=== PATIENT | male | born 1935 | race Caucasian/White ===

== ENCOUNTER 2017-01-23 02:30 | Emergency (ER) | payer MEDICARE ==
[2017-01-23 03:02] LABS: INR 1.47; PROTHROMBIN TIME 15.8 SECONDS (9.3-11.4)
[2017-01-23] MEDS ORDERED: DIPHTH,PERTUSS(ACELL),TET VAC 0.5 ML VIAL IM V ONE (03:14)
[2017-01-23] MEDS ORDERED: ONDANSETRON 4 MG/2ML 2 ML VIAL ONE (03:18)
[2017-01-23 03:28] LABS: BASO % 0.8 % (0.2-1.0); EOS # 0.2 (0.0-0.5); EOS % 6.2 % (0.9-2.9); HEMATOCRIT 33.9 % (32.0-52.0); HEMOGLOBIN 10.6 gm/l (14.0-18.0); IMM NEUT% 0.3 % (0-1); LYMPH # 1.3 (1.0-4.8); LYMPH % 33.2 % (15-45); MEAN CELL VOLUME 97.1 fl (80.0-94.0); MEAN CORPUSCULAR HEMOGLOBIN 30.4 pg (27.0-31.0); MEAN CORPUSCULAR HGB CONC 31.3 g/dl (33.0-37.0); MEAN PLATELET VOLUME 11.5 fl (7.4-10.4); MONO # 0.3 (0.0-0.8); MONO % 7.7 % (4-12); NEUT % 51.8 % (43-75); PLATELET COUNT 120 K/mm3 (130-400)
[2017-01-23 03:38] LABS: ALB/GLOB RATIO 1.1 (>1.0); ALBUMIN 3.3 gm/dL (3.5-5.7); CALCIUM 8.6 mg/dL (8.6-10.3)
[2017-01-23] MEDS ORDERED: FENTANYL 100 MCG/2 ML VIAL ONE (03:43)
--- NOTE | 2017-01-23 13:21 | CT ---
HEAD W/O CON COMPARISON: None HISTORY: Ground-level fall, possibly down for 2 hours. Head injury with pain/edema/hematoma/abrasion to the left forehead. Amnestic to event. TECHNIQUE: Using a [employer] Aquilion [address] scanner, images were obtained through the head. An automated dose reduction technique was used to minimize patient radiation dose. DOSE INFORMATION: CTDIvol (mGy): 51.70 DLP(mGycm): 1109.40 FINDINGS: Mass: None Intracranial Hemorrhage: Left hemispheric subdural hematoma up to 3.5 mm in thickness. Acute Infarction: None Cerebral hemispheres: No acute finding. Marked atrophy and low attenuation of the white matter. Basal ganglia: Normal Thalami: Normal Brainstem: Normal Cerebellum: Normal Ventricles: Normal Basilar cisterns: Normal Corpus callosum: Normal Pituitary fossa: Normal Middle ears and mastoid air cells: Normal Orbits and sinuses: No acute finding. Age-related changes in the optic globes. Normal sinuses. Skull and scalp: Left frontal forehead scalp hematoma. No depressed skull fracture. Dural sinuses and vessels: Atherosclerosis of the intracranial arteries. IMPRESSION: 1. Left frontal forehead scalp hematoma without depressed skull fracture. Left hemispheric subdural hematoma up to 3.5 mm in thickness. 2. Marked cerebral atrophy and chronic small vessel schema change. Critical result preliminary report by [facility] radiologist Madison Vaughn M.D. 01/23/2017 at 03:06
--- NOTE | 2017-01-23 13:25 | CT ---
C-SPINE W/O CON COMPARISON: None. HISTORY: 81-year-old male. Ground-level fall, amnestic to the event. Neck injury. Technique unenhanced CT images obtained through the cervical spine. Technique: Using a [employer] Aqu[employer] [address] scanner, images obtained through the cervical spine. An automated dose reduction technique was used to minimize patient radiation dose. Dose information: CTDIvol (mGy) 10.80 DLP(mGycm): 198.50 FINDINGS: Vertebral alignment: Hyperlordosis. No excessive angulation or translation. C1-2 alignment: Normal. Craniocervical junction: Normal. Vertebral bodies: Generalized osteopenia. No fracture. Mild osteophytes at multiple levels. Intervertebral discs: Narrowing, C3-4 severe, C5-6 severe, C6-7 severe. Spinal canal: Normal. Facet joints and posterior arches: Osteoarthritis, C3-4 right, mild. Prevertebral soft tissues: Atherosclerosis of the internal carotid arteries. Lung apices and superior mediastinum: Normal. Airway: Normal. IMPRESSION: 1. No fracture or dislocation of cervical spine. 2. Multilevel spondylosis with severe disc narrowing. 3. 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 4. Atherosclerosis of the internal carotid arteries. Preliminary report by [facility] radiologists Madison Vaughn M.D. 01/23/2017 at 03:09
== END 2017-01-23 04:12 | disposition home or self-care (01) ==
LOC: ED 02:30
DX: S06.5X0A Traumatic subdural hemorrhage without loss of consciousness, initial encounter (principal); S00.83XA Contusion of other part of head, initial encounter; Z86.718 Personal history of other venous thrombosis and embolism; Z79.01 Long term (current) use of anticoagulants; Z23 Encounter for immunization; W10.9XXA Fall (on) (from) unspecified stairs and steps, initial encounter; Y93.9 Activity, unspecified; Y92.008 Other place in unspecified non-institutional (private) residence as the place of occurrence of the external cause
CPT/HCPCS: 90715; 85025; 80053; 85610; 72125; 70450; 86901; 86850 ×3; 90471; 96375; 99284; 96374; 93005; 99285; J3010; J2405